=== PATIENT | male | born 1955 | race Two or more races ===

== ENCOUNTER 2021-05-03 13:49 | Outpatient (CLI) | payer OTHER | END 2021-05-03 13:51 | disposition home or self-care (01) | LOC: LAB 13:49 | PROVIDERS: ATTEND Surgery | DX: R97.20 Elevated prostate specific antigen [PSA] (principal) ==

== ENCOUNTER 2021-05-20 07:15 | Outpatient (CLI) | payer OTHER | END 2021-05-20 07:23 | disposition home or self-care (01) | LOC: SONOGRAMA 07:15 | PROVIDERS: ATTEND Surgery | DX: C61 Malignant neoplasm of prostate (principal); D29.1 Benign neoplasm of prostate; R97.20 Elevated prostate specific antigen [PSA] ==